=== PATIENT | male | born 1950 | race African-American/Black ===

== ENCOUNTER 2020-08-12 08:17 | Inpatient (IN) | payer MEDICARE, MEDICAID ==
[2020-08-12] VITALS (15 sets, daily range): BP systolic 104–156; BP diastolic 43–81
[~2020-08-12] VITALS: Ht 172.7 cm; Wt 63.5 kg
[2020-08-12 09:32] LABS: CHLORIDE 108 mEq/L (98-107)
[2020-08-12 09:33] LABS: BASOPHILS % 0.2 % (0.0-2.0); EOSINOPHILS % 0.9 % (0.0-5.0); HEMATOCRIT. 40.6 % (42.0-52.0); HEMOGLOBIN. 12.5 g/dL (14.0-18.0); LYMPHOCYTES % 37.1 % (20.0-50.0); MEAN CORPUSCULAR HEMOGLOBIN 24.6 pg (28.0-32.0); MEAN CORPUSCULAR VOLUME 79.8 fL (80.0-94.0); MEAN PLATELET VOLUME 8.4 fl (7.4-10.4); MONOCYTES % 10.2 % (2.0-8.0); NEUTROPHILS % 51.6 % (40.0-76.0); PLATELET 140 x1000/uL (130-400); RED BLOOD CELL COUNT 5.08 mill/uL (4.7-6.1); RED CELL DISTRIBUTION WIDTH 13.7 % (11.6-14.6)
[2020-08-12 09:36] LABS: ETHANOL BLOOD < 10 mg/dL
[2020-08-12] MEDS ORDERED: SODIUM CHLORIDE 0.9% 1,000 ML IV ONE (09:45)
[2020-08-12 10:52] LABS: CLARITY URINE CLEAR (CLEAR); COLOR URINE YELLOW (YELLOW); KETONES URINE NEGATIVE (NEGATIVE); LEUKOCYTE ESTERASE URINE NEGATIVE (NEGATIVE); NITRITE URINE NEGATIVE (NEGATIVE); OCCULT BLOOD URINE NEGATIVE (NEGATIVE); PROTEIN URINE TRACE (NEGATIVE); SPECIFIC GRAVITY URINE 1.021 (1.005-1.030); UROBILINOGEN URINE 0.2 E.U./dL (0.2-1.0)
[2020-08-12 11:08] LABS: *AMPHETAMINES SCREEN URINE NEGATIVE (NEGATIVE); *BARBITURATES SCREEN URINE NEGATIVE (NEGATIVE); *BENZODIAZEPINES SCREEN URINE NEGATIVE (NEGATIVE)
[2020-08-12 11:09] LABS: *COCAINE SCREEN URINE NEGATIVE (NEGATIVE); CANNABINOID URINE SCREEN PRESUMTIVE POSITIVE (NEGATIVE); METHADONE URINE SCREEN NEGATIVE (NEGATIVE); OPIATES URINE SCREEN NEGATIVE (NEGATIVE); PHENCYCLIDINE URINE SCREEN NEGATIVE (NEGATIVE)
[2020-08-12] MEDS ORDERED: LEVETIRACETAM 1000MG PREMIX 100 ML IV SCH (12:30)
[2020-08-12] MEDS ORDERED: DEXAMETHASONE 4MG/ML 1ML VIAL IV ONE (13:15)
[2020-08-12] MEDS ORDERED: NITROGLYCERIN 0.4MG TABLET SL SL PRN (13:30)
[2020-08-12] MEDS ORDERED: NICARDIPINE 100 MG in SODIUM CHLORIDE 0.9% 60 ML IV PRN (13:30)
[2020-08-12] MEDS ORDERED: GUAIFENESIN 200MG/10ML SUGAR FREE UDC PO PRN (13:30)
[2020-08-12] MEDS ORDERED: LORAZEPAM 2MG/ML CPJ IV PRN (13:30)
[2020-08-12] MEDS ORDERED: MAGNESIUM/ALUMINUM HYDROXIDE/SIMETHICONE 30ML UDC PO PRN (13:30)
[2020-08-12] MEDS ORDERED: ACETAMINOPHEN 325MG TABLET PO PRN (13:30)
[2020-08-12] MEDS ORDERED: IPRATROPIUM/ALBUTEROL 0.5-3(2.5)MG/3ML NEB NEB PRN (13:30)
[2020-08-12] MEDS ORDERED: CEFTRIAXONE 1 G PREMIX 50 ML IV SCH (14:00)
[2020-08-12] MEDS: DEXT 5%/LACTATED RINGERS 1,000 ML IV SCH (14:05)
[2020-08-12 14:21] LABS: T4 FREE 1.16 ng/dL (0.76-1.46)
[2020-08-12 14:33] LABS: FOLIC ACID (FOLATE) SERUM 14.2 ng/mL (>5.38)
[2020-08-12 14:41] LABS: CREATINE KINASE MB FRACTION 3.4 ng/mL (0.5-3.6)
[2020-08-12] MEDS: PANTOPRAZOLE SODIUM 40 MG/VIAL IV SCH (14:49)
[2020-08-12] MEDS: NICARDIPINE 100 MG in SODIUM CHLORIDE 0.9% 60 ML IV PRN (16:11)
[2020-08-12] MEDS: DEXAMETHASONE 4MG/ML 1ML VIAL IV SCH ×2 (16:57→21:28)
[2020-08-12] MEDS ORDERED: LEVETIRACETAM 500MG PREMIX 100 ML IV SCH (18:00)
[2020-08-12] MEDS ORDERED: GADOTERATE MEGLUMINE 5 MMOL/10 ML VIAL IV ONE (18:35)
[2020-08-12] MEDS: LEVETIRACETAM 500MG PREMIX 100 ML IV SCH (22:13)
[2020-08-13] VITALS (98 sets, daily range): BP systolic 74–154; BP diastolic 43–113
[2020-08-13 00:14] LABS: CREATINE KINASE MB FRACTION 3.9 ng/mL (0.5-3.6)
[2020-08-13] MEDS: DEXT 5%/LACTATED RINGERS 1,000 ML IV SCH ×2 (00:39→15:28)
[2020-08-13] MEDS: DEXAMETHASONE 4MG/ML 1ML VIAL IV SCH ×7 (00:39→23:58)
[2020-08-13] MEDS: NICARDIPINE 100 MG in SODIUM CHLORIDE 0.9% 60 ML IV PRN (00:40)
[2020-08-13 06:00] LABS: CHLORIDE 110 mEq/L (98-107)
[2020-08-13 06:04] LABS: HEMATOCRIT. 39.5 % (42.0-52.0); HEMOGLOBIN. 12.5 g/dL (14.0-18.0); LYMPHOCYTES % 8.9 % (20.0-50.0); MEAN CORPUSCULAR HEMOGLOBIN 24.3 pg (28.0-32.0); MEAN PLATELET VOLUME 9.2 fl (7.4-10.4); MONOCYTES % 1.3 % (2.0-8.0); NEUTROPHILS % 89.8 % (40.0-76.0); PLATELET 153 x1000/uL (130-400); RED BLOOD CELL COUNT 5.13 mill/uL (4.7-6.1); RED CELL DISTRIBUTION WIDTH 13.3 % (11.6-14.6)
[2020-08-13 06:15] LABS: PHOSPHORUS 2.4 mg/dL (2.5-4.9)
[2020-08-13] MEDS: PANTOPRAZOLE SODIUM 40 MG/VIAL IV SCH (08:46)
[2020-08-13] MEDS: LEVETIRACETAM 500MG PREMIX 100 ML IV SCH ×2 (08:47→20:23)
[2020-08-13] MEDS: CEFTRIAXONE 1,000 MG in DEXTROSE 5% WATER 50 ML IV SCH (11:18)
[2020-08-13 11:43] LABS: PROTHROMBIN TIME 10.9 sec (9.6-11.0)
[2020-08-14] VITALS (112 sets, daily range): BP systolic 64–167; BP diastolic 18–86
[2020-08-14] MEDS: NICARDIPINE 100 MG in SODIUM CHLORIDE 0.9% 60 ML IV PRN ×2 (04:00→17:27)
[2020-08-14] MEDS: DEXAMETHASONE 4MG/ML 1ML VIAL IV SCH ×4 (04:00→23:27)
[2020-08-14] MEDS: DEXT 5%/LACTATED RINGERS 1,000 ML IV SCH ×2 (05:20→10:51)
[2020-08-14 05:53] LABS: HEMATOCRIT. 37.8 % (42.0-52.0); HEMOGLOBIN. 11.8 g/dL (14.0-18.0); MEAN CORPUSCULAR HEMOGLOBIN 24.3 pg (28.0-32.0); MEAN PLATELET VOLUME 9.6 fl (7.4-10.4); PLATELET 141 x1000/uL (130-400); RED BLOOD CELL COUNT 4.84 mill/uL (4.7-6.1); RED CELL DISTRIBUTION WIDTH 13.4 % (11.6-14.6)
[2020-08-14 06:02] LABS: CHLORIDE 110 mEq/L (98-107)
[2020-08-14 06:08] LABS: PROTHROMBIN TIME 10.9 sec (9.6-11.0)
[2020-08-14] MEDS ORDERED: GENTAMICIN SULF 40MG/ML 2ML VIAL ONE (06:21)
[2020-08-14] MEDS ORDERED: POLYMYXIN B SULFATE 500000 UNITS/VIAL ONE (06:21)
[2020-08-14] MEDS ORDERED: THROMBIN (BOVINE) 5000 UNITS/VIAL TOP ONE (06:21)
[2020-08-14] MEDS ORDERED: LIDOCAINE 1%/EPI 1:200,000 10 ML VIAL IJ ONE (06:21)
[2020-08-14] MEDS ORDERED: ROCURONIUM BROMIDE 10MG/ML VIAL 5ML IV ONE ×2 (07:09→08:42)
[2020-08-14] MEDS ORDERED: DEXAMETHASONE 4MG/ML 1ML VIAL ONE (07:11)
[2020-08-14] MEDS ORDERED: HYDROMORPHONE HCL/PF 2MG/ML (OR) ONE (07:11)
[2020-08-14] MEDS ORDERED: LEVETIRACETAM 500MG PREMIX 100 ML IV ONE (07:16)
[2020-08-14] MEDS ORDERED: MANNITOL 20% 500 ML IV ONE (07:16)
[2020-08-14] MEDS ORDERED: BACITRACIN 15GM TUBE TOP ONE ×2 (07:39→07:40)
[2020-08-14] MEDS ORDERED: HYDRALAZINE 20MG/ML VIAL ONE ×3 (07:43→09:42)
[2020-08-14] MEDS ORDERED: LABETALOL HCL 5MG/ML VIAL 20ML IV ONE (07:47)
[2020-08-14] MEDS ORDERED: POTASSIUM CHLORIDE 40MEQ/20ML INJ IV ONE (07:57)
[2020-08-14] MEDS ORDERED: ALBUMIN HUMAN 25GM/100ML (25%) IV ONE (08:23)
[2020-08-14] MEDS: LEVETIRACETAM 500MG PREMIX 100 ML IV SCH ×2 (09:00→20:20)
[2020-08-14] MEDS ORDERED: GLYCOPYRROLATE 0.2 MG/ML 2ML VIAL ONE ×2 (09:18→11:03)
[2020-08-14] MEDS ORDERED: NEOSTIGMINE METHYLSULFATE 1MG/ML 10 ML VIAL ONE (09:18)
[2020-08-14] MEDS: PANTOPRAZOLE SODIUM 40 MG/VIAL IV SCH (10:49)
[2020-08-14 10:51] LABS: BG BASE EXCESS -1.7 mmol/L (-2.0-2.0); BG CARBOXYHEMOGLOBIN 0.3 % (0.5-1.5); BG DEOXYHEMOGLOBIN 0.5 % (0.0-5.0); BG FRACTION INSPIRED OXYGEN 40; BG HCO3 ACT 25.9 mmol/L (22.0-26.0); BG METHEMOGLOBIN 0.4 % (0.0-1.5); BG OXYGEN SATURATION 99.5 % (92.0-98.5); BG OXYHEMOGLOBIN 98.8 % (94.0-97.0); BG PCO2 57.9 mmHg (35.0-45.0); BG PH 7.269 (7.350-7.450); BG PO2 276.5 mmHg (75.0-100.0); BG SAMPLE SITE RIGHT RADIAL; BG TOTAL HEMOGLOBIN 11.6 g/dL (12.0-18.0); BG VENT MODE MASK - SIMPLE
[2020-08-14] MEDS: CEFTRIAXONE 1,000 MG in DEXTROSE 5% WATER 50 ML IV SCH (10:53)
[2020-08-14] MEDS ORDERED: NALOXONE HCL 0.4 MG/ML 1ML VIAL ONE (11:03)
[2020-08-14] MEDS: MORPHINE SULFATE 4 MG/ML CPJ (NOT FOR IM USE) IV PRN ×6 (11:27→23:29)
[2020-08-14 11:43] LABS: BG BASE EXCESS -4.3 mmol/L (-2.0-2.0); BG CARBOXYHEMOGLOBIN 0.1 % (0.5-1.5); BG DEOXYHEMOGLOBIN 2.5 % (0.0-5.0); BG FRACTION INSPIRED OXYGEN 28; BG HCO3 ACT 20.6 mmol/L (22.0-26.0); BG METHEMOGLOBIN 0.3 % (0.0-1.5); BG OXYGEN SATURATION 97.5 % (92.0-98.5); BG OXYHEMOGLOBIN 97.1 % (94.0-97.0); BG PCO2 37.2 mmHg (35.0-45.0); BG PH 7.362 (7.350-7.450); BG PO2 97.5 mmHg (75.0-100.0); BG SAMPLE SITE ALINE; BG TOTAL HEMOGLOBIN 10.4 g/dL (12.0-18.0); BG VENT MODE NASAL CANNULA
[2020-08-14 13:01] LABS: PLATELET ESTIMATE NORMAL
[2020-08-14] MEDS: CEFAZOLIN 1000MG PREMIX 50 ML IV SCH ×2 (13:34→21:13)
[2020-08-14] MEDS ORDERED: CEFAZOLIN SODIUM 1000MG/VIAL IV SCH (14:00)
[2020-08-14] MEDS ORDERED: MORPHINE SULFATE 2 MG/ML CPJ (NOT FOR IM USE) IV NR (19:15)
[2020-08-15] VITALS (114 sets, daily range): BP systolic 68–165; BP diastolic 37–115
[2020-08-15] MEDS: DEXT 5%/LACTATED RINGERS 1,000 ML IV SCH ×2 (01:42→19:20)
[2020-08-15] MEDS: MORPHINE SULFATE 4 MG/ML CPJ (NOT FOR IM USE) IV PRN ×7 (01:44→23:29)
[2020-08-15] MEDS: NICARDIPINE 100 MG in SODIUM CHLORIDE 0.9% 60 ML IV PRN ×3 (01:45→17:24)
[2020-08-15] MEDS ORDERED: MORPHINE SULFATE 2 MG/ML CPJ (NOT FOR IM USE) IV SCH (02:30)
[2020-08-15] MEDS: CEFAZOLIN 1000MG PREMIX 50 ML IV SCH ×3 (05:48→21:33)
[2020-08-15] MEDS: DEXAMETHASONE 4MG/ML 1ML VIAL IV SCH ×3 (05:48→17:24)
[2020-08-15] MEDS: PANTOPRAZOLE SODIUM 40 MG/VIAL IV SCH (08:37)
[2020-08-15] MEDS: LEVETIRACETAM 500MG PREMIX 100 ML IV SCH ×2 (08:37→20:44)
[2020-08-15] MEDS ORDERED: DIAZEPAM 2 MG TABLET PO NR (09:00)
[2020-08-15] MEDS: CEFTRIAXONE 1,000 MG in DEXTROSE 5% WATER 50 ML IV SCH (09:22)
[2020-08-15 11:57] LABS: MEAN CORPUSCULAR HEMOGLOBIN 24.6 pg (28.0-32.0); MEAN CORPUSCULAR VOLUME 78.3 fL (80.0-94.0); MEAN PLATELET VOLUME 9.2 fl (7.4-10.4); PLATELET 120 x1000/uL (130-400); RED BLOOD CELL COUNT 4.48 mill/uL (4.7-6.1); RED CELL DISTRIBUTION WIDTH 13.9 % (11.6-14.6)
[2020-08-15 12:09] LABS: CHLORIDE 112 mEq/L (98-107)
[2020-08-15 14:15] LABS: PLATELET ESTIMATE SLIGHTLY DECREASED
[2020-08-15] MEDS ORDERED: POTASSIUM CHLORIDE 20MEQ TABLET SR PO ONE (15:30)
[2020-08-15] MEDS ORDERED: POTASSIUM CHLORIDE 20MEQ TABLET SR PO SCH (16:00)
[2020-08-15] MEDS: CLONIDINE 0.1MG TABLET PO PRN (16:10)
[2020-08-15] MEDS ORDERED: DIAZEPAM 5 MG/ML 2ML CPJ IV SCH (20:30)
[2020-08-15] MEDS ORDERED: DIAZEPAM 2 MG TABLET PO SCH (21:30)
[2020-08-16] VITALS (79 sets, daily range): BP systolic 95–147; BP diastolic 47–114
[2020-08-16] MEDS: NICARDIPINE 100 MG in SODIUM CHLORIDE 0.9% 60 ML IV PRN ×3 (00:29→21:05)
[2020-08-16] MEDS: MORPHINE SULFATE 4 MG/ML CPJ (NOT FOR IM USE) IV PRN ×7 (02:54→22:20)
[2020-08-16] MEDS: CEFAZOLIN 1000MG PREMIX 50 ML IV SCH ×2 (06:11→14:25)
[2020-08-16] MEDS ORDERED: DIAZEPAM 5 MG/ML 2ML CPJ IM ONE (07:45)
[2020-08-16] MEDS ORDERED: DIAZEPAM 5 MG/ML 2ML CPJ IV ONE (07:45)
[2020-08-16] MEDS: LEVETIRACETAM 500MG PREMIX 100 ML IV SCH ×2 (08:11→20:36)
[2020-08-16] MEDS: PANTOPRAZOLE SODIUM 40 MG/VIAL IV SCH (08:12)
[2020-08-16 09:08] LABS: HEMATOCRIT. 34.8 % (42.0-52.0); HEMOGLOBIN. 10.8 g/dL (14.0-18.0); MEAN PLATELET VOLUME 9.8 fl (7.4-10.4); PLATELET 115 x1000/uL (130-400); RED BLOOD CELL COUNT 4.52 mill/uL (4.7-6.1); RED CELL DISTRIBUTION WIDTH 13.4 % (11.6-14.6)
[2020-08-16 09:13] LABS: CHLORIDE 115 mEq/L (98-107)
[2020-08-16] MEDS: TAMSULOSIN HCL 0.4MG SR CAPSULE PO SCH ×2 (09:13→20:35)
[2020-08-16 09:53] LABS: PLATELET ESTIMATE SLIGHTLY DECREASED
[2020-08-16] MEDS: DUTASTERIDE 0.5MG CAPSULE PO SCH (10:51)
[2020-08-16] MEDS: CEFTRIAXONE 1,000 MG in DEXTROSE 5% WATER 50 ML IV SCH (10:56)
[2020-08-16] MEDS: DEXT 5%/LACTATED RINGERS 1,000 ML IV SCH (12:34)
[2020-08-16 13:46] LABS: CLARITY URINE CLEAR (CLEAR); COLOR URINE YELLOW (YELLOW); KETONES URINE NEGATIVE (NEGATIVE); LEUKOCYTE ESTERASE URINE 2+ (NEGATIVE); NITRITE URINE NEGATIVE (NEGATIVE); OCCULT BLOOD URINE 3+ (NEGATIVE); PH URINE 5.5 (4.5-8.0); PROTEIN URINE 2+ (NEGATIVE); SPECIFIC GRAVITY URINE 1.017 (1.005-1.030); UROBILINOGEN URINE 0.2 E.U./dL (0.2-1.0)
[2020-08-16] MEDS: ONDANSETRON HCL 4MG/2ML INJ IV PRN (19:32)
[2020-08-16] MEDS ORDERED: DIAZEPAM 5 MG/ML 2ML CPJ IV SCH (21:00)
[2020-08-17] VITALS (96 sets, daily range): BP systolic 110–149; BP diastolic 51–75
[2020-08-17] MEDS: MORPHINE SULFATE 4 MG/ML CPJ (NOT FOR IM USE) IV PRN ×2 (00:45→16:13)
[2020-08-17] MEDS: DEXT 5%/LACTATED RINGERS 1,000 ML IV SCH ×2 (01:15→21:30)
[2020-08-17 05:53] LABS: HEMATOCRIT. 34.4 % (42.0-52.0); HEMOGLOBIN. 10.4 g/dL (14.0-18.0); MEAN CORPUSCULAR HEMOGLOBIN 24.2 pg (28.0-32.0); MEAN CORPUSCULAR VOLUME 79.6 fL (80.0-94.0); MEAN PLATELET VOLUME 9.9 fl (7.4-10.4); PLATELET 78 x1000/uL (130-400); RED BLOOD CELL COUNT 4.31 mill/uL (4.7-6.1)
[2020-08-17 06:11] LABS: CHLORIDE 116 mEq/L (98-107)
[2020-08-17] MEDS: PANTOPRAZOLE SODIUM 40 MG/VIAL IV SCH (08:01)
[2020-08-17] MEDS: DUTASTERIDE 0.5MG CAPSULE PO SCH (08:01)
[2020-08-17] MEDS: TAMSULOSIN HCL 0.4MG SR CAPSULE PO SCH ×2 (08:02→20:26)
[2020-08-17] MEDS: LEVETIRACETAM 500MG PREMIX 100 ML IV SCH ×2 (08:02→20:26)
[2020-08-17 11:50] LABS: PLATELET ESTIMATE DECREASED
[2020-08-17] MEDS: ONDANSETRON HCL 4MG/2ML INJ IV PRN (13:38)
[2020-08-17] MEDS: NICARDIPINE 100 MG in SODIUM CHLORIDE 0.9% 60 ML IV PRN ×2 (13:46→22:11)
[2020-08-17] MEDS: AMLODIPINE 5MG TABLET PO SCH (20:25)
[2020-08-17] MEDS: IPRATROPIUM/ALBUTEROL 0.5-3(2.5)MG/3ML NEB HHN SCH (20:30)
[2020-08-18] VITALS (96 sets, daily range): BP systolic 88–149; BP diastolic 40–77
[2020-08-18] MEDS: IPRATROPIUM/ALBUTEROL 0.5-3(2.5)MG/3ML NEB HHN SCH ×8 (00:36→20:07)
[2020-08-18] MEDS: MORPHINE SULFATE 4 MG/ML CPJ (NOT FOR IM USE) IV PRN ×3 (01:06→23:35)
[2020-08-18 05:49] LABS: HEMATOCRIT. 34.2 % (42.0-52.0); HEMOGLOBIN. 10.7 g/dL (14.0-18.0); MEAN CORPUSCULAR HEMOGLOBIN 23.9 pg (28.0-32.0); MEAN CORPUSCULAR VOLUME 76.4 fL (80.0-94.0); MEAN PLATELET VOLUME 9.4 fl (7.4-10.4); PLATELET 100 x1000/uL (130-400); RED BLOOD CELL COUNT 4.47 mill/uL (4.7-6.1)
[2020-08-18 05:52] LABS: CHLORIDE 111 mEq/L (98-107)
[2020-08-18] MEDS: NICARDIPINE 100 MG in SODIUM CHLORIDE 0.9% 60 ML IV PRN ×2 (06:15→15:34)
[2020-08-18] MEDS ORDERED: LISI20TA31 MT (08:38)
[2020-08-18] MEDS: DUTASTERIDE 0.5MG CAPSULE PO SCH (08:47)
[2020-08-18] MEDS: CLONIDINE 0.1MG TABLET PO PRN ×2 (08:47→15:34)
[2020-08-18] MEDS: PANTOPRAZOLE SODIUM 40 MG/VIAL IV SCH (08:47)
[2020-08-18] MEDS: AMLODIPINE 5MG TABLET PO SCH (08:48)
[2020-08-18] MEDS: DOCUSATE SODIUM 100MG CAPSULE PO PRN ×2 (08:48→15:34)
[2020-08-18] MEDS: TAMSULOSIN HCL 0.4MG SR CAPSULE PO SCH ×2 (08:48→20:13)
[2020-08-18] MEDS: LEVETIRACETAM 500MG PREMIX 100 ML IV SCH ×2 (08:50→20:18)
[2020-08-18] MEDS: AMLODIPINE 10MG TABLET PO SCH (10:51)
[2020-08-18] MEDS: LISINOPRIL 20MG TABLET PO SCH ×2 (10:51→20:13)
[2020-08-18 14:19] LABS: PLATELET ESTIMATE DECREASED
[2020-08-18] MEDS: DEXT 5%/LACTATED RINGERS 1,000 ML IV SCH (15:35)
[2020-08-19] VITALS (89 sets, daily range): BP systolic 111–148; BP diastolic 60–86
[2020-08-19] MEDS: IPRATROPIUM/ALBUTEROL 0.5-3(2.5)MG/3ML NEB HHN SCH ×6 (00:08→20:52)
[2020-08-19] MEDS: NICARDIPINE 100 MG in SODIUM CHLORIDE 0.9% 60 ML IV PRN ×2 (03:51→17:26)
[2020-08-19] MEDS: DEXT 5%/LACTATED RINGERS 1,000 ML IV SCH (06:10)
[2020-08-19] MEDS: LEVETIRACETAM 500MG PREMIX 100 ML IV SCH ×2 (08:51→20:32)
[2020-08-19] MEDS: DOCUSATE SODIUM 100MG CAPSULE PO PRN ×2 (08:51→17:26)
[2020-08-19] MEDS: CLONIDINE 0.1MG TABLET PO PRN ×2 (08:51→17:26)
[2020-08-19] MEDS: LISINOPRIL 20MG TABLET PO SCH ×2 (08:52→20:33)
[2020-08-19] MEDS: DUTASTERIDE 0.5MG CAPSULE PO SCH (08:52)
[2020-08-19] MEDS: PANTOPRAZOLE SODIUM 40 MG/VIAL IV SCH (08:52)
[2020-08-19] MEDS: AMLODIPINE 10MG TABLET PO SCH (08:53)
[2020-08-19] MEDS: TAMSULOSIN HCL 0.4MG SR CAPSULE PO SCH ×2 (08:54→20:33)
[2020-08-19] MEDS ORDERED: METOPROLOL TARTRATE 50MG TABLET PO NR (10:30)
[2020-08-19] MEDS: METOPROLOL TARTRATE 50MG TABLET PO SCH (20:33)
[2020-08-19] MEDS: ACETAMINOPHEN 325MG TABLET PO PRN (20:41)
[2020-08-20] VITALS (88 sets, daily range): BP systolic 97–148; BP diastolic 60–84
[2020-08-20] MEDS: IPRATROPIUM/ALBUTEROL 0.5-3(2.5)MG/3ML NEB HHN SCH ×6 (00:47→20:29)
[2020-08-20] MEDS: ACETAMINOPHEN 325MG TABLET PO PRN (01:54)
[2020-08-20 05:57] LABS: EOSINOPHILS % 3.1 % (0.0-5.0); HEMATOCRIT. 29.9 % (42.0-52.0); HEMOGLOBIN. 9.4 g/dL (14.0-18.0); LYMPHOCYTES % 25.2 % (20.0-50.0); MEAN CORPUSCULAR HEMOGLOBIN 24.1 pg (28.0-32.0); MEAN CORPUSCULAR VOLUME 76.7 fL (80.0-94.0); MEAN PLATELET VOLUME 9.5 fl (7.4-10.4); MONOCYTES % 12.5 % (2.0-8.0); NEUTROPHILS % 59.2 % (40.0-76.0); PLATELET 105 x1000/uL (130-400); RED CELL DISTRIBUTION WIDTH 13.1 % (11.6-14.6)
[2020-08-20 06:04] LABS: CHLORIDE 106 mEq/L (98-107)
[2020-08-20] MEDS: METOPROLOL TARTRATE 50MG TABLET PO SCH (08:12)
[2020-08-20] MEDS: LEVETIRACETAM 500MG PREMIX 100 ML IV SCH ×2 (08:12→20:44)
[2020-08-20] MEDS: DOCUSATE SODIUM 100MG CAPSULE PO PRN (08:13)
[2020-08-20] MEDS: AMLODIPINE 10MG TABLET PO SCH (08:13)
[2020-08-20] MEDS: LISINOPRIL 20MG TABLET PO SCH ×2 (08:13→20:45)
[2020-08-20] MEDS: DUTASTERIDE 0.5MG CAPSULE PO SCH (08:13)
[2020-08-20] MEDS: TAMSULOSIN HCL 0.4MG SR CAPSULE PO SCH ×2 (08:14→20:44)
[2020-08-20] MEDS: PANTOPRAZOLE SODIUM 40 MG/VIAL IV SCH (08:14)
[2020-08-20] MEDS ORDERED: METOPROLOL TARTRATE 25MG TABLET PO NR (11:45)
[2020-08-20] MEDS: CLONIDINE 0.1MG TABLET PO PRN (12:35)
[2020-08-20] MEDS ORDERED: GADOTERATE MEGLUMINE 5 MMOL/10 ML VIAL IV ONE (13:16)
[2020-08-20] MEDS: METOPROLOL TARTRATE 25MG TABLET PO SCH (20:50)
[2020-08-21] VITALS: BP 113/67
[2020-08-21] MEDS: IPRATROPIUM/ALBUTEROL 0.5-3(2.5)MG/3ML NEB HHN SCH ×6 (00:43→21:10)
[2020-08-21 04:00] VITALS: BP 104/61
[2020-08-21 08:03] VITALS: BP 124/68
[2020-08-21] MEDS: PANTOPRAZOLE SODIUM 40 MG/VIAL IV SCH (09:46)
[2020-08-21] MEDS: LEVETIRACETAM 500MG PREMIX 100 ML IV SCH ×2 (09:46→21:19)
[2020-08-21] MEDS: TAMSULOSIN HCL 0.4MG SR CAPSULE PO SCH ×2 (09:47→21:19)
[2020-08-21] MEDS: LISINOPRIL 20MG TABLET PO SCH ×2 (09:48→21:20)
[2020-08-21] MEDS: METOPROLOL TARTRATE 25MG TABLET PO SCH ×2 (09:48→21:19)
[2020-08-21] MEDS: DUTASTERIDE 0.5MG CAPSULE PO SCH (09:48)
[2020-08-21] MEDS: AMLODIPINE 10MG TABLET PO SCH (09:48)
[2020-08-21 11:23] VITALS: BP 131/77
[2020-08-21 15:31] VITALS: BP 113/66
[2020-08-21 20:00] VITALS: BP 112/70
[2020-08-22] VITALS (7 sets, daily range): BP systolic 111–129; BP diastolic 60–80
[2020-08-22] MEDS: IPRATROPIUM/ALBUTEROL 0.5-3(2.5)MG/3ML NEB HHN SCH ×5 (00:54→16:45)
[2020-08-22] MEDS: PANTOPRAZOLE SODIUM 40 MG/VIAL IV SCH (08:59)
[2020-08-22] MEDS: LEVETIRACETAM 500MG PREMIX 100 ML IV SCH (08:59)
[2020-08-22] MEDS: TAMSULOSIN HCL 0.4MG SR CAPSULE PO SCH ×2 (09:01→20:38)
[2020-08-22] MEDS: LISINOPRIL 20MG TABLET PO SCH ×2 (09:02→20:37)
[2020-08-22] MEDS: DUTASTERIDE 0.5MG CAPSULE PO SCH (09:02)
[2020-08-22] MEDS: AMLODIPINE 10MG TABLET PO SCH (09:02)
[2020-08-22] MEDS: METOPROLOL TARTRATE 25MG TABLET PO SCH ×2 (09:02→20:37)
[2020-08-22] MEDS: ACETAMINOPHEN 325MG TABLET PO PRN ×2 (09:03→17:14)
[2020-08-22] MEDS ORDERED: POLYVINYL ALCOHOL OPHTH DROPS 15ML BOTHEYE SCH (20:00)
[2020-08-22] MEDS ORDERED: LEVETIRACETAM 500MG TABLET PO SCH (21:00)
== END 2020-08-22 20:55 | DRG 25 ==
LOC: ER 08:34 → MICUNO 12:19 → EDBEDREQ 12:25 → EDBEDREQTM 12:25 → SUPCPDRO 13:09 → EDBEDREQSVC 13:16 → ENRESERV 15:09 → MICUSO 08-14 19:05 → 6WST 08-20 22:30
PROVIDERS: ADMIT Internal Medicine; ATTEND Internal Medicine
PROC: 00B10ZZ Excision of Cerebral Meninges, Open Approach (ICD-10-PCS; principal; 2020-08-14)
PROC: 00U207Z Supplement Dura Mater with Autologous Tissue Substitute, Open Approach (ICD-10-PCS; 2020-08-14)
DX: D32.0 Benign neoplasm of cerebral meninges (principal); G93.6 Cerebral edema; G92 Toxic encephalopathy; E87.1 Hypo-osmolality and hyponatremia; I16.1 Hypertensive emergency; D63.8 Anemia in other chronic diseases classified elsewhere; I10 Essential (primary) hypertension; E78.5 Hyperlipidemia, unspecified; D69.6 Thrombocytopenia, unspecified; E78.00 Pure hypercholesterolemia, unspecified; F12.10 Cannabis abuse, uncomplicated; G40.909 Epilepsy, unspecified, not intractable, without status epilepticus; R26.9 Unspecified abnormalities of gait and mobility; R13.10 Dysphagia, unspecified; Z78.1 Physical restraint status; Z79.899 Other long term (current) drug therapy; Z82.49 Family history of ischemic heart disease and other diseases of the circulatory system; Z83.3 Family history of diabetes mellitus; Z20.822 Contact with and (suspected) exposure to COVID-19
CPT/HCPCS: 36415; 36600; 70553; 71045; 80048; 80053; 80061; 80305; 80320; 81003; 82375; 82550; 82553; 82607; 82746; 82805; 83036; 83540; 83550; 83735; 84100; 84153; 84439; 84443; 84484; 85025; 86850; 86900; 87426; 88304; 88331; 92610; 93005; 93970; 94640; 97116; 97162; 97165; 97530; 99291; A9577; C1713; C1725; C1758; C9113; J0360; J0690; J0696; J1100; J1170; J1580; J1953; J2270; J2310; J2405; J2710; J3480; J3490; J7040; J7050; J7060; J7121; P9047; A4315; G0103; G0480

== ENCOUNTER 2020-08-22 21:00 | Inpatient (IN) | payer MEDICARE, MEDICAID ==
[~2020-08-22] VITALS: Ht 175.3 cm; Wt 63.5 kg
[2020-08-22 21:00] VITALS: BP 130/77
[~2020-08-22 21:00] MED LIST: LISI20TA31 MT
[2020-08-22] MEDS ORDERED: ONDANSETRON HCL 4MG/2ML INJ IV PRN (22:15)
[2020-08-22] MEDS ORDERED: NITROGLYCERIN 0.4MG TABLET SL SL PRN (22:15)
[2020-08-22] MEDS ORDERED: GUAIFENESIN 200MG/10ML SUGAR FREE UDC PO PRN (22:15)
[2020-08-22] MEDS ORDERED: ACETAMINOPHEN 325MG TABLET PO PRN (22:15)
[2020-08-22] MEDS ORDERED: IPRATROPIUM/ALBUTEROL 0.5-3(2.5)MG/3ML NEB HHN PRN (22:15)
[2020-08-22] MEDS ORDERED: TAMSULOSIN HCL 0.4MG SR CAPSULE PO SCH (22:15)
[2020-08-22] MEDS ORDERED: CLONIDINE 0.1MG TABLET PO PRN (22:15)
[2020-08-23] MEDS: IPRATROPIUM/ALBUTEROL 0.5-3(2.5)MG/3ML NEB HHN SCH ×3 (04:00→13:03)
[2020-08-23] MEDS ORDERED: CLONIDINE 0.1MG TABLET PO PRN (05:00)
[2020-08-23 07:02] VITALS: BP 126/82
[2020-08-23 08:00] VITALS: BP 157/86
[2020-08-23] MEDS ORDERED: POLYVINYL ALCOHOL OPHTH DROPS 15ML BOTHEYE PRN (09:00)
[2020-08-23] MEDS: PANTOPRAZOLE SODIUM 40 MG/VIAL IV SCH (09:18)
[2020-08-23] MEDS: METOPROLOL TARTRATE 25MG TABLET PO SCH ×2 (09:19→21:42)
[2020-08-23] MEDS: DUTASTERIDE 0.5MG CAPSULE PO SCH (09:19)
[2020-08-23] MEDS: LISINOPRIL 20MG TABLET PO SCH ×2 (09:19→21:43)
[2020-08-23] MEDS: AMLODIPINE 10MG TABLET PO SCH (09:20)
[2020-08-23] MEDS: TAMSULOSIN HCL 0.4MG SR CAPSULE PO SCH ×2 (09:20→21:42)
[2020-08-23] MEDS: LEVETIRACETAM 500MG TABLET PO SCH ×2 (09:20→21:42)
[2020-08-23] MEDS: ACETAMINOPHEN 325MG TABLET PO PRN ×2 (09:20→21:58)
[2020-08-23 13:18] LABS: BASOPHILS % 0.6 % (0.0-2.0); EOSINOPHILS % 0.7 % (0.0-5.0); HEMATOCRIT. 35.4 % (42.0-52.0); HEMOGLOBIN. 11.5 g/dL (14.0-18.0); LYMPHOCYTES % 11.2 % (20.0-50.0); MEAN CORPUSCULAR HEMOGLOBIN 24.9 pg (28.0-32.0); MEAN CORPUSCULAR VOLUME 76.2 fL (80.0-94.0); MEAN PLATELET VOLUME 8.7 fl (7.4-10.4); MONOCYTES % 9.7 % (2.0-8.0); NEUTROPHILS % 77.8 % (40.0-76.0); PLATELET 172 x1000/uL (130-400); RED BLOOD CELL COUNT 4.64 mill/uL (4.7-6.1)
[2020-08-23 14:11] LABS: CHLORIDE 105 mEq/L (98-107)
[2020-08-23 20:00] VITALS: BP 126/58
[2020-08-23] MEDS: BRIMONIDINE 0.2% OPHTH DROPS 5ML BOTHEYE SCH (21:43)
[2020-08-23] MEDS: LATANOPROST 0.005% OPHTH DROPS 2.5ML BOTHEYE SCH (21:43)
[2020-08-23] MEDS: POLYVINYL ALCOHOL OPHTH DROPS 15ML BOTHEYE SCH (21:44)
[2020-08-24] MEDS: DOCUSATE SODIUM 100MG CAPSULE PO PRN (01:17)
[2020-08-24] MEDS ORDERED: BISACODYL 5MG TABLET PO NR (05:30)
[2020-08-24] MEDS: BRIMONIDINE 0.2% OPHTH DROPS 5ML BOTHEYE SCH ×3 (06:03→21:12)
[2020-08-24 07:01] LABS: BASOPHILS % 0.4 % (0.0-2.0); EOSINOPHILS % 1.4 % (0.0-5.0); HEMATOCRIT. 33.3 % (42.0-52.0); HEMOGLOBIN. 10.9 g/dL (14.0-18.0); MEAN CORPUSCULAR HEMOGLOBIN 25.1 pg (28.0-32.0); MEAN PLATELET VOLUME 8.6 fl (7.4-10.4); MONOCYTES % 10.8 % (2.0-8.0); NEUTROPHILS % 69.4 % (40.0-76.0); PLATELET 169 x1000/uL (130-400); RED BLOOD CELL COUNT 4.33 mill/uL (4.7-6.1); RED CELL DISTRIBUTION WIDTH 13.2 % (11.6-14.6)
[2020-08-24 07:17] LABS: CHLORIDE 106 mEq/L (98-107)
[2020-08-24 07:25] LABS: TOTAL IRON BINDING CAPACITY 236 ug/dL (250-450)
[2020-08-24 07:40] LABS: FOLIC ACID (FOLATE) SERUM 15.6 ng/mL (>5.38)
[2020-08-24 07:53] VITALS: BP 114/65
[2020-08-24] MEDS: PANTOPRAZOLE SODIUM 40 MG/VIAL IV SCH (08:39)
[2020-08-24] MEDS: DUTASTERIDE 0.5MG CAPSULE PO SCH (08:39)
[2020-08-24] MEDS: LISINOPRIL 20MG TABLET PO SCH ×2 (08:39→20:49)
[2020-08-24] MEDS: AMLODIPINE 10MG TABLET PO SCH (08:40)
[2020-08-24] MEDS: METOPROLOL TARTRATE 25MG TABLET PO SCH ×2 (08:40→20:48)
[2020-08-24] MEDS: LEVETIRACETAM 500MG TABLET PO SCH ×2 (08:40→20:48)
[2020-08-24] MEDS: TAMSULOSIN HCL 0.4MG SR CAPSULE PO SCH ×2 (08:40→20:48)
[2020-08-24] MEDS: MAGNESIUM/ALUMINUM HYDROXIDE/SIMETHICONE 30ML UDC PO PRN (08:44)
[2020-08-24] MEDS: LACTULOSE 20G/30ML UDC PO SCH ×3 (11:00→20:49)
[2020-08-24] MEDS: TRAMADOL 50MG TABLET PO PRN (20:47)
[2020-08-24] MEDS: LATANOPROST 0.005% OPHTH DROPS 2.5ML BOTHEYE SCH (20:51)
[2020-08-24] MEDS: POLYVINYL ALCOHOL OPHTH DROPS 15ML BOTHEYE SCH (20:52)
[2020-08-24 21:18] VITALS: BP 117/69
[2020-08-25] MEDS: BRIMONIDINE 0.2% OPHTH DROPS 5ML BOTHEYE SCH ×3 (05:56→21:29)
[2020-08-25 07:41] VITALS: BP 119/68
[2020-08-25] MEDS: PANTOPRAZOLE SODIUM 40 MG/VIAL IV SCH (08:44)
[2020-08-25] MEDS: MAGNESIUM/ALUMINUM HYDROXIDE/SIMETHICONE 30ML UDC PO PRN (08:44)
[2020-08-25] MEDS: METOPROLOL TARTRATE 25MG TABLET PO SCH ×2 (08:45→21:24)
[2020-08-25] MEDS: AMLODIPINE 10MG TABLET PO SCH (08:46)
[2020-08-25] MEDS: TAMSULOSIN HCL 0.4MG SR CAPSULE PO SCH ×2 (08:46→21:23)
[2020-08-25] MEDS: LISINOPRIL 20MG TABLET PO SCH ×2 (08:47→21:23)
[2020-08-25] MEDS: LEVETIRACETAM 500MG TABLET PO SCH ×2 (08:47→21:23)
[2020-08-25] MEDS: DUTASTERIDE 0.5MG CAPSULE PO SCH (08:47)
[2020-08-25] MEDS: ACETAMINOPHEN 325MG TABLET PO PRN (18:53)
[2020-08-25 20:00] VITALS: BP 129/69
[2020-08-25] MEDS: LATANOPROST 0.005% OPHTH DROPS 2.5ML BOTHEYE SCH ×2 (21:24→21:28)
[2020-08-26] MEDS: BRIMONIDINE 0.2% OPHTH DROPS 5ML BOTHEYE SCH ×3 (06:51→20:28)
[2020-08-26 08:00] VITALS: BP 124/68
[2020-08-26] MEDS: LEVETIRACETAM 500MG TABLET PO SCH ×2 (10:07→20:27)
[2020-08-26] MEDS: LISINOPRIL 20MG TABLET PO SCH ×2 (10:07→20:28)
[2020-08-26] MEDS: AMLODIPINE 10MG TABLET PO SCH (10:07)
[2020-08-26] MEDS: TAMSULOSIN HCL 0.4MG SR CAPSULE PO SCH ×2 (10:08→20:27)
[2020-08-26] MEDS: METOPROLOL TARTRATE 25MG TABLET PO SCH ×2 (10:08→20:28)
[2020-08-26] MEDS: DUTASTERIDE 0.5MG CAPSULE PO SCH (10:08)
[2020-08-26] MEDS: FAMOTIDINE 20MG TABLET PO SCH ×2 (10:09→20:28)
[2020-08-26 20:00] VITALS: BP 115/57
[2020-08-26 22:10] LABS: CLARITY URINE CLEAR (CLEAR); COLOR URINE YELLOW (YELLOW); KETONES URINE NEGATIVE (NEGATIVE); LEUKOCYTE ESTERASE URINE NEGATIVE (NEGATIVE); NITRITE URINE NEGATIVE (NEGATIVE); OCCULT BLOOD URINE 3+ (NEGATIVE); PH URINE 6.5 (4.5-8.0); PROTEIN URINE NEGATIVE (NEGATIVE); SPECIFIC GRAVITY URINE 1.014 (1.005-1.030)
[2020-08-27] MEDS: ACETAMINOPHEN 325MG TABLET PO PRN (01:41)
[2020-08-27] MEDS: BRIMONIDINE 0.2% OPHTH DROPS 5ML BOTHEYE SCH ×3 (05:33→22:09)
[2020-08-27 07:23] LABS: BASOPHILS % 0.4 % (0.0-2.0); EOSINOPHILS % 0.8 % (0.0-5.0); HEMATOCRIT. 33.8 % (42.0-52.0); HEMOGLOBIN. 10.5 g/dL (14.0-18.0); LYMPHOCYTES % 24.1 % (20.0-50.0); MEAN CORPUSCULAR HEMOGLOBIN 24.3 pg (28.0-32.0); MEAN CORPUSCULAR VOLUME 78.4 fL (80.0-94.0); MONOCYTES % 14.4 % (2.0-8.0); NEUTROPHILS % 60.3 % (40.0-76.0); PLATELET 184 x1000/uL (130-400); RED BLOOD CELL COUNT 4.31 mill/uL (4.7-6.1); RED CELL DISTRIBUTION WIDTH 13.6 % (11.6-14.6)
[2020-08-27 07:48] VITALS: BP 117/61
[2020-08-27 07:52] LABS: CHLORIDE 106 mEq/L (98-107)
[2020-08-27] MEDS: METOPROLOL TARTRATE 25MG TABLET PO SCH ×2 (08:44→21:00)
[2020-08-27] MEDS: FAMOTIDINE 20MG TABLET PO SCH ×2 (08:45→22:08)
[2020-08-27] MEDS: TAMSULOSIN HCL 0.4MG SR CAPSULE PO SCH ×2 (08:45→22:07)
[2020-08-27] MEDS: AMLODIPINE 10MG TABLET PO SCH (08:45)
[2020-08-27] MEDS: DUTASTERIDE 0.5MG CAPSULE PO SCH (08:45)
[2020-08-27] MEDS: LISINOPRIL 20MG TABLET PO SCH ×2 (08:46→21:00)
[2020-08-27] MEDS: LEVETIRACETAM 500MG TABLET PO SCH ×2 (08:46→22:05)
[2020-08-27] MEDS: TRAMADOL 50MG TABLET PO PRN (18:17)
[2020-08-27 20:00] VITALS: BP 112/60
[2020-08-27] MEDS: LATANOPROST 0.005% OPHTH DROPS 2.5ML BOTHEYE SCH (22:09)
[2020-08-28] MEDS: BRIMONIDINE 0.2% OPHTH DROPS 5ML BOTHEYE SCH ×3 (06:40→20:43)
[2020-08-28 08:00] VITALS: BP 113/67
[2020-08-28] MEDS: FAMOTIDINE 20MG TABLET PO SCH ×2 (08:19→20:41)
[2020-08-28] MEDS: LEVETIRACETAM 500MG TABLET PO SCH ×2 (08:20→20:41)
[2020-08-28] MEDS: DOCUSATE SODIUM 100MG CAPSULE PO PRN (08:20)
[2020-08-28] MEDS: LISINOPRIL 20MG TABLET PO SCH ×3 (08:20→21:00)
[2020-08-28] MEDS: DUTASTERIDE 0.5MG CAPSULE PO SCH (08:20)
[2020-08-28] MEDS: TAMSULOSIN HCL 0.4MG SR CAPSULE PO SCH ×2 (08:21→20:41)
[2020-08-28] MEDS: METOPROLOL TARTRATE 25MG TABLET PO SCH ×3 (08:22→21:00)
[2020-08-28] MEDS: AMLODIPINE 10MG TABLET PO SCH (08:22)
[2020-08-28] MEDS: ACETAMINOPHEN 325MG TABLET PO PRN ×2 (15:37→20:41)
[2020-08-28 20:00] VITALS: BP 98/62
[2020-08-28] MEDS: LATANOPROST 0.005% OPHTH DROPS 2.5ML BOTHEYE SCH (20:43)
[2020-08-29] MEDS: ACETAMINOPHEN 325MG TABLET PO PRN (04:07)
[2020-08-29] MEDS: BRIMONIDINE 0.2% OPHTH DROPS 5ML BOTHEYE SCH ×3 (05:44→20:40)
[2020-08-29 07:33] VITALS: BP_SYST 100; BP_DIAS 16; BP_DIAS 66
[2020-08-29] MEDS: LEVETIRACETAM 500MG TABLET PO SCH ×2 (08:26→20:40)
[2020-08-29] MEDS: DUTASTERIDE 0.5MG CAPSULE PO SCH (08:26)
[2020-08-29] MEDS: TAMSULOSIN HCL 0.4MG SR CAPSULE PO SCH ×2 (08:26→20:43)
[2020-08-29] MEDS: DOCUSATE SODIUM 100MG CAPSULE PO PRN ×2 (08:26→20:39)
[2020-08-29] MEDS: FAMOTIDINE 20MG TABLET PO SCH ×2 (08:26→20:40)
[2020-08-29 08:31] VITALS: BP 115/65
[2020-08-29] MEDS: METOPROLOL TARTRATE 25MG TABLET PO SCH ×2 (08:41→20:43)
[2020-08-29] MEDS: LISINOPRIL 20MG TABLET PO SCH ×2 (08:41→20:43)
[2020-08-29] MEDS: AMLODIPINE 10MG TABLET PO SCH (08:42)
[2020-08-29 19:06] LABS: 25-HYDROXY VITAMIN D3 20 ng/mL (.)
[2020-08-29 20:00] VITALS: BP 126/66
[2020-08-29] MEDS: LATANOPROST 0.005% OPHTH DROPS 2.5ML BOTHEYE SCH (20:40)
[2020-08-30] MEDS: BRIMONIDINE 0.2% OPHTH DROPS 5ML BOTHEYE SCH ×2 (05:54→14:59)
[2020-08-30 08:47] VITALS: BP 113/62
[2020-08-30] MEDS: METOPROLOL TARTRATE 25MG TABLET PO SCH (08:52)
[2020-08-30] MEDS: LEVETIRACETAM 500MG TABLET PO SCH (08:52)
[2020-08-30] MEDS: FAMOTIDINE 20MG TABLET PO SCH (08:52)
[2020-08-30] MEDS: LISINOPRIL 20MG TABLET PO SCH (08:53)
[2020-08-30] MEDS: AMLODIPINE 10MG TABLET PO SCH (08:53)
[2020-08-30] MEDS: TAMSULOSIN HCL 0.4MG SR CAPSULE PO SCH (08:53)
[2020-08-30] MEDS: DUTASTERIDE 0.5MG CAPSULE PO SCH (08:55)
[2020-08-30] MEDS ORDERED: ERGOCALCIFEROL 50000UNITS CAPSULE PO SCH (09:00)
[2020-08-30 16:20] VITALS: BP 113/62
== END 2020-08-30 17:45 | disposition home health service (06) | DRG 54 ==
PROVIDERS: ADMIT Physical Medicine & Rehabilitation Spinal Cord Injury Medicine; ATTEND Internal Medicine
DX: D32.0 Benign neoplasm of cerebral meninges (principal); G93.6 Cerebral edema; E87.1 Hypo-osmolality and hyponatremia; E46 Unspecified protein-calorie malnutrition; G40.909 Epilepsy, unspecified, not intractable, without status epilepticus; D69.6 Thrombocytopenia, unspecified; E78.00 Pure hypercholesterolemia, unspecified; R53.81 Other malaise; R47.1 Dysarthria and anarthria; D63.8 Anemia in other chronic diseases classified elsewhere; I10 Essential (primary) hypertension; E11.319 Type 2 diabetes mellitus with unspecified diabetic retinopathy without macular edema; E55.9 Vitamin D deficiency, unspecified; E78.5 Hyperlipidemia, unspecified; F39 Unspecified mood [affective] disorder; R13.10 Dysphagia, unspecified; N40.1 Benign prostatic hyperplasia with lower urinary tract symptoms; R33.8 Other retention of urine; Z20.822 Contact with and (suspected) exposure to COVID-19; Z79.899 Other long term (current) drug therapy; Z82.49 Family history of ischemic heart disease and other diseases of the circulatory system; Z83.3 Family history of diabetes mellitus; Z68.20 Body mass index [BMI] 20.0-20.9, adult
CPT/HCPCS: 36415; 80053; 81003; 82306; 82607; 82728; 82746; 83540; 83550; 84134; 84443; 85025; 87426; 92523; 92610; 93970; 94640; 97110; 97112; 97116; 97162; 97166; 97530; 97535; C9113